=== PATIENT | female | born 1950 | race Caucasian/White ===

== ENCOUNTER 2025-02-11 06:20 | Day surgery (SDC) | payer OTHER, SELFPAY ==
[2025-02-11 07:20] VITALS: BP 140/79; BMI 26.0
[2025-02-11 07:30] VITALS: BMI 26.0
[2025-02-11 09:15] VITALS: BP 129/89
[2025-02-11 09:30] VITALS: BP 148/83
== END 2025-02-11 09:50 | disposition home or self-care (01) ==
LOC: SDS 06:20
PROVIDERS: ATTENDING PHYSICIAN Internal Medicine Gastroenterology
DX: K55.20 Angiodysplasia of colon without hemorrhage (principal); K57.30 Diverticulosis of large intestine without perforation or abscess without bleeding; K64.8 Other hemorrhoids; D50.9 Iron deficiency anemia, unspecified; K44.9 Diaphragmatic hernia without obstruction or gangrene; K31.7 Polyp of stomach and duodenum; K31.89 Other diseases of stomach and duodenum
CPT/HCPCS: 45378; 43239; 88305